=== PATIENT | female | born 1995 | race Caucasian/White ===

== ENCOUNTER 2018-05-15 06:21 | Day surgery (SDC) | payer OTHER ==
[2018-05-14 17:17] VITALS: BMI 32.7
[2018-05-15] VITALS (13 sets, daily range): BP systolic 117–143; BP diastolic 55–82; PULSE 67–84; RESP 15–24; Ht 157.5 cm; Wt 91.3 kg
[~2018-05-15] VITALS: Ht 157.5 cm; Wt 91.3 kg
[2018-05-15] MEDS ORDERED: GLYCOPYRROLATE 0.4 MG INJ ONE (07:00)
[2018-05-15] MEDS ORDERED: CEFAZOLIN 1 GM INJ ONE (07:00)
[2018-05-15] MEDS ORDERED: NEOSTIGMINE 3 MG/3 ML SYRINGE ONE (07:00)
[2018-05-15] MEDS ORDERED: DEXAMETHASONE 4 MG/ML 5 ML INJ ONE (07:00)
[2018-05-15] MEDS ORDERED: FENTAnyl 50 MCG/ML VIAL ONE (08:11)
[2018-05-15] MEDS ORDERED: ROCURONIUM 50 MG INJ ONE (08:12)
[2018-05-15] MEDS ORDERED: MIDAZOLAM 1 MG/ML 2 ML INJ ONE (08:12)
[2018-05-15] MEDS ORDERED: METOCLOPRAMIDE 10 MG INJ ONE (08:12)
[2018-05-15] MEDS ORDERED: SUCCINYLCHOLINE CHLORIDE 100 MG/5 ML SYG IV ONE (08:12)
[2018-05-15] MEDS ORDERED: PROPOFOL 20 ML ONE (08:12)
[2018-05-15] MEDS ORDERED: LIDOCAINE 2% (SDV) 5 ML INJ ONE (08:12)
[2018-05-15] MEDS ORDERED: ROPIVACAINE 0.5 % 30 ML VIAL ONE (08:36)
--- NOTE | 2018-05-15 09:32 | PREAC ---
Date/Time of Note Date/Time of Note DATE: 05/15/18 TIME: 09:31 Anesthesia Eval and Record Evaluation Time Pre-Procedure Interview DATE: 05/15/18 TIME: 09:31 Age 22 Sex female NPO: 8 hrs Preoperative diagnosis gallstones Planned procedure lap deb Past Medical History Past Medical History: Includes Pulm: Sleep Apnea GI: Obesity Surgery & Anesthesia Issues No known issue Meds Anticoagulation: No Beta Yesenia within 24 hr: No Reason Beta Yesenia not given: Pt. not on B-Yesenia No Active Prescriptions or Reported Meds Meds reviewed: Yes Allergies Coded Allergies: morphine (Verified Adverse Reaction, Unknown, 05/15/18) Allergies Reviewed: Yes Labs/Studies Labs Reviewed: Reviewed by anesthesiologist test: Negative Pre-procedure Exam Last vitals Vital Signs Date Temp Pulse Resp B/P (MAP) Pulse Ox O2 O2 Flow FiO2 Time Delivery Rate 05/15/18 96.5 67 16 117/55 100 Room Air 07:44 (75) Airway: Adequate mouth opening, Adequate thyromental dist Mallampati: Mallampati III Teeth: Normal Lung: Normal Heart: Normal ASA Physical Status ASA physical status: 2 Emergency: None Planned Anesthetic General/MAC: ETT Planned Pain Management Single shot nerve block, Parenteral pain med, Local by surgeon Pre-operative Attestations Prior to commencing anesthesia and surgery, the patient was re-evaluated, there was verification of: *The patient's identity *The results of appropriate recent lab work and preoperative vital signs *The above evaluation not changing prior to induction *Anesthetic plan, risk benefits, alternative and complications discussed with patient/family; questions answered; patient/family understands, accepts and wishes to proceed. KATHARINE SIMENTAL MD May 15, 2018 09:32
[2018-05-15] MEDS ORDERED: MEPERIDINE 25 MG INJ IV PRN (10:00)
[2018-05-15] MEDS ORDERED: HYDROmorphONE 1 MG/5 ML IV SYRINGE IV PRN ×3 (10:00)
[2018-05-15] MEDS ORDERED: DIPHENHYDRAMINE 50 MG INJ IV PRN (10:00)
[2018-05-15] MEDS ORDERED: KETOROLAC 30 MG INJ IV PRN (10:00)
[2018-05-15] MEDS ORDERED: FENTAnyl 50 MCG/ML VIAL IV PRN (10:00)
[2018-05-15] MEDS ORDERED: LEVALBUTEROL (NEB) 1.25 MG/0.5 ML AMP HHN PRN (10:00)
[2018-05-15] MEDS ORDERED: ONDANSETRON 4 MG INJ IV PRN (10:00)
--- NOTE | 2018-05-15 10:38 | OPR ---
Date/Time of Note Date/Time of Note DATE: 05/15/18 TIME: 10:34 Operative Report Procedure Date: May 15, 2018 Preoperative Diagnosis symptomatic gallstones Postoperative Diagnosis same Operation/Procedure Performed laparoscopic cholecystectomy Surgeon see signature line [employer] Re[employer]er Logan Cho Anesthesia Type: general Estimated Blood Loss: 0 - 10 ml's Transfusion none Specimen gallbladder Grafts/Implants none Complications none Pt Condition Post Procedure: stable Indications This is a 22-year-old female with some tender gallstones. She requests surgical excision of her gallbladder. Risks alternatives benefits and personnel were discussed the patient. Potential complications including but not limited to bleeding infection, bile duct injury intra-abdominal organ injury need for additional operations potentially were discussed with the patient. Patient expresses understanding and consents to the operation. Procedure Description Patient is taken to the OR and prepped and draped in the usual sterile fashion. Surgical timeout was performed. IV antibiotics are given. Infraumbilical incision is made transversely with a 15 blade. Dissection is carried down to the fascia. The fascia was grasped with [place]'s and divided with curved Guajardo scissors. 0 Vicryl U stitch was placed into the fascia. [place] trocar was introduced. Pneumoperitoneum is established. Midepigastric 12 mm optical trochars placed under direct visualization. Right upper quadrant upper flank 5 mm optical trochars were placed under direct visualization. Upon initial inspection there is some adhesions to the gallbladder. The gallbladder is grasped the fundus and retracted in a lateral cephalad direction. [place] graspers were used to dissect out the cystic duct and cystic artery. The critical view was established. The cystic duct is identified and 3 clips were applied proximally and one clip distal. The cystic duct is divided with laparoscopic scissors. The cystic artery is handled in a similar fashion with 3 clips proximally clipped distal and the division was performed laparoscopic scissors. The gallbladder is taken off the gallbladder bed. Good hemostasis established. Minimal spillage occurred and suction irrigation was used to thoroughly wash out the abdomen. Good hemostasis was reestablished. The gallbladder was retrieved using Endo Catch bag. 0 Vicryl U stitch sutures were tied down. Ports were removed under direct position. Skin is closed using skin robson. A tap block was provided by the anesthesiologist. Dry dressings were applied. Nii GARDNER May 15, 2018 10:38
[2018-05-15] MEDS ORDERED: HYDROCODONE/APAP (5/325) TAB PO ONE (11:00)
[2018-05-15] MEDS: FENTAnyl 50 MCG/ML VIAL IV PRN ×2 (11:06→11:12)
--- NOTE | 2018-05-21 16:43 | PAC ---
Date/Time of Note Date/Time of Note DATE: 05/21/18 TIME: 16:42 Post-Anesthesia Notes Post-Anesthesia Note Activity: WNL Respiratory function: WNL Cardiovascular function: WNL Mental status: Baseline Pain reasonably controlled: Yes Hydration appropriate: Yes Nausea/Vomiting absent: Yes KATHARINE SIMENTAL MD May 21, 2018 16:43
== END 2018-05-15 12:20 | disposition home or self-care (01) ==
LOC: SDS 06:21
PROVIDERS: ATTEND Surgery
DX: K80.10 Calculus of gallbladder with chronic cholecystitis without obstruction (principal); E66.9 Obesity, unspecified; Z68.36 Body mass index [BMI] 36.0-36.9, adult
CPT/HCPCS: 47562; J1170; J1200; J1885; J2175; J2250; J2405; J2765; J2795; J3010; Z7610; 84703; 88304; J0690; J1100; J2710